=== PATIENT | male | born 1935 | race African-American/Black ===

== ENCOUNTER 2017-12-07 17:45 | Observation (INO) | payer BC ==
[~2017-12-07] VITALS: Ht 182.9 cm; Wt 79.8 kg
[~2017-12-07 17:45] MED LIST: AMLO2.5T2 PO; AMLO2.5T45 PO; ASPI-1159 PO; DEXL60CA3 PO; FINA5TAB11 PO; KETO5DRO37 RIGHTEYE; LEVO5TAB13 PO; PRAV40TA58 PO; TRAM50TA3 PO; TRAM50TA94 PO; TRIA15OI8 TP
[2017-12-07] MEDS ORDERED: ASPIRIN 325MG EC TABLET PO ONE (18:30)
[2017-12-07 18:59] LABS: BASOPHILS % 1.3 % (0.0-2.0); EOSINOPHILS % 1.1 % (0.0-5.0); HEMATOCRIT. 38.4 % (42.0-52.0); HEMOGLOBIN. 12.4 g/dL (14.0-18.0); LYMPHOCYTES % 29.2 % (20.0-50.0); MEAN CORPUSCULAR HEMOGLOBIN 22.8 pg (28.0-32.0); MEAN CORPUSCULAR VOLUME 70.9 fL (80.0-94.0); MEAN PLATELET VOLUME 9.7 fl (7.4-10.4); MONOCYTES % 7.1 % (2.0-8.0); NEUTROPHILS % 61.3 % (40.0-76.0); PLATELET 257 x1000/uL (130-400); RED BLOOD CELL COUNT 5.42 mill/uL (4.7-6.1); RED CELL DISTRIBUTION WIDTH 15.4 % (11.6-14.6)
[2017-12-07 19:07] LABS: CHLORIDE 104 mEq/L (98-107)
[2017-12-07 19:09] LABS: PARTIAL THROMBOPLASTIN TIME 29.1 sec (23.4-31.0); PROTHROMBIN TIME 10.1 sec (9.1-11.1)
[2017-12-07] MEDS ORDERED: HYDROCODONE/ACETAMINOPHEN 5/325MG TABLET PO ONE (20:15)
[2017-12-07] MEDS ORDERED: ASPIRIN 81MG TABLET PO ONE (20:45)
[2017-12-07] MEDS ORDERED: ATORVASTATIN CALCIUM 40MG TABLET PO SCH (21:00)
[2017-12-07 22:00] VITALS: BP 156/79
[2017-12-07] MEDS: SODIUM CHLORIDE 0.9% INJ 3ML FLUSH IVF SCH (22:00)
[2017-12-07 22:19] VITALS: BP 156/79
[2017-12-07] MEDS ORDERED: TAMS0.4C31 PO (22:40)
[2017-12-07] MEDS ORDERED: RANI15SY PO (22:40)
[2017-12-07] MEDS: AMLODIPINE 2.5MG TABLET PO SCH (23:03)
[2017-12-07] MEDS: KETOROLAC TROMETHAMINE 0.5% OPHTH 3ML RIGHTEYE SCH (23:04)
[2017-12-07] MEDS ORDERED: DEXTROSE 50% WATER 50ML SYRINGE IV PRN (23:45)
[2017-12-08] VITALS: BP 125/57
[2017-12-08 04:00] VITALS: BP 126/66
[2017-12-08] MEDS: SODIUM CHLORIDE 0.9% INJ 3ML FLUSH IVF SCH (05:04)
[2017-12-08] MEDS: ACETAMINOPHEN 325MG TABLET PO PRN ×2 (05:04→14:44)
[2017-12-08 06:41] LABS: BASOPHILS % 0.9 % (0.0-2.0); EOSINOPHILS % 1.8 % (0.0-5.0); HEMATOCRIT. 35.4 % (42.0-52.0); HEMOGLOBIN. 11.5 g/dL (14.0-18.0); LYMPHOCYTES % 27.9 % (20.0-50.0); MEAN CORPUSCULAR HEMOGLOBIN 23.2 pg (28.0-32.0); MEAN CORPUSCULAR VOLUME 71.3 fL (80.0-94.0); MEAN PLATELET VOLUME 9.1 fl (7.4-10.4); MONOCYTES % 8.3 % (2.0-8.0); NEUTROPHILS % 61.1 % (40.0-76.0); PLATELET 235 x1000/uL (130-400); RED BLOOD CELL COUNT 4.96 mill/uL (4.7-6.1); RED CELL DISTRIBUTION WIDTH 15.4 % (11.6-14.6)
[2017-12-08] MEDS ORDERED: PANTOPRAZOLE 40MG DR TABLET PO SCH (07:40)
[2017-12-08] MEDS: BLOOD SUGAR DIAGNOSTIC STRIP TEST SCH ×2 (07:40→12:40)
[2017-12-08 08:00] VITALS: BP 119/67
[2017-12-08] MEDS: INSULIN LISPRO 100 UNITS/ML SUBCUT SCH ×2 (08:10→12:59)
[2017-12-08] MEDS: KETOROLAC TROMETHAMINE 0.5% OPHTH 3ML RIGHTEYE SCH (09:00)
[2017-12-08] MEDS ORDERED: FINASTERIDE 5MG TABLET PO SCH (09:00)
[2017-12-08] MEDS ORDERED: ENOXAPARIN 40MG/0.4ML SYR SUBCUT SCH (09:00)
[2017-12-08] MEDS: AMLODIPINE 2.5MG TABLET PO SCH (09:31)
[2017-12-08 12:00] VITALS: BP 110/66
[2017-12-08 16:00] VITALS: BP 129/62
[2017-12-08 17:30] VITALS: BP 144/77
== END 2017-12-08 18:10 | disposition home or self-care (01) ==
LOC: ER 18:52 → INTOOBSV 20:17 → 7WST 20:17 → ENRESERV 20:32
PROVIDERS: ADMIT Ophthalmology; ATTEND Ophthalmology
DX: R07.89 Other chest pain (principal); E78.00 Pure hypercholesterolemia, unspecified; E78.5 Hyperlipidemia, unspecified; K21.9 Gastro-esophageal reflux disease without esophagitis; I12.9 Hypertensive chronic kidney disease with stage 1 through stage 4 chronic kidney disease, or unspecified chronic kidney disease; N18.9 Chronic kidney disease, unspecified; D50.9 Iron deficiency anemia, unspecified
CPT/HCPCS: 36415; 71045; 73610; 80048; 80053; 80061; 82962; 83690; 83880; 84484; 85025; 85610; 85730; 93005; 96372; 99285; G0378; J1650

== ENCOUNTER 2018-07-09 09:51 | Inpatient (IN) | payer BC ==
[~2018-07-09] VITALS: Ht 182.9 cm; Wt 86.6 kg
[~2018-07-09 09:51] MED LIST changes: -AMLO2.5T2 PO; -DEXL60CA3 PO; +TAMS0.4C31 PO; -TRAM50TA3 PO
[2018-07-09] MEDS ORDERED: ASPIRIN 325MG TABLET PO ONE (11:15)
[2018-07-09] MEDS ORDERED: VISCOUS LIDOCAINE 2% 15 ML UDC PO STA (11:34)
[2018-07-09] MEDS ORDERED: FAMOTIDINE 20MG/2ML VIAL IV STA (11:34)
[2018-07-09] MEDS ORDERED: MAGNESIUM/ALUMINUM HYDROXIDE/SIMETHICONE 30ML UDC PO STA (11:34)
[2018-07-09] MEDS ORDERED: ONDANSETRON HCL 4MG/2ML INJ IV STA (11:34)
[2018-07-09 11:56] LABS: BASOPHILS % 1.6 % (0.0-2.0); EOSINOPHILS % 2.2 % (0.0-5.0); HEMATOCRIT. 38.7 % (42.0-52.0); HEMOGLOBIN. 12.1 g/dL (14.0-18.0); LYMPHOCYTES % 25.3 % (20.0-50.0); MEAN CORPUSCULAR HEMOGLOBIN 22.8 pg (28.0-32.0); MEAN CORPUSCULAR VOLUME 72.9 fL (80.0-94.0); MEAN PLATELET VOLUME 9.5 fl (7.4-10.4); NEUTROPHILS % 63.9 % (40.0-76.0); PLATELET 204 x1000/uL (130-400); RED BLOOD CELL COUNT 5.31 mill/uL (4.7-6.1)
[2018-07-09 12:02] LABS: CHLORIDE 107 mEq/L (98-107)
[2018-07-09] MEDS ORDERED: ONDANSETRON HCL 4MG/2ML INJ IV PRN (23:15)
[2018-07-09] MEDS ORDERED: HYDROCODONE/ACETAMINOPHEN 5/325MG TABLET PO PRN (23:15)
[2018-07-09] MEDS ORDERED: IPRATROPIUM/ALBUTEROL 0.5-3(2.5)MG/3ML NEB INH PRN (23:15)
[2018-07-09] MEDS ORDERED: CLONIDINE 0.1MG TABLET PO PRN (23:15)
[2018-07-09] MEDS ORDERED: ACETAMINOPHEN 325MG TABLET PO PRN (23:15)
[2018-07-10 04:00] VITALS: BP 132/72
[2018-07-10 05:17] VITALS: BP 132/72
[2018-07-10 08:00] VITALS: BP 122/64
[2018-07-10] MEDS ORDERED: ENOXAPARIN 30MG/0.3ML SYR SUBCUT SCH (09:00)
[2018-07-10] MEDS: ASPIRIN 81MG EC TABLET PO SCH (09:00)
[2018-07-10 11:10] LABS: BASOPHILS % 0.9 % (0.0-2.0); EOSINOPHILS % 2.1 % (0.0-5.0); HEMATOCRIT. 38.6 % (42.0-52.0); HEMOGLOBIN. 12.1 g/dL (14.0-18.0); LYMPHOCYTES % 20.3 % (20.0-50.0); MEAN CORPUSCULAR VOLUME 73.2 fL (80.0-94.0); MEAN PLATELET VOLUME 9.6 fl (7.4-10.4); NEUTROPHILS % 69.7 % (40.0-76.0); PLATELET 180 x1000/uL (130-400); RED BLOOD CELL COUNT 5.27 mill/uL (4.7-6.1)
[2018-07-10 11:31] LABS: CHLORIDE 104 mEq/L (98-107)
[2018-07-10 11:38] LABS: LDL CHOLESTEROL 83 mg/dL (5-100)
[2018-07-10 11:39] LABS: HDL CHOLESTEROL 50 mg/dL (40-59); T4 FREE 1.03 ng/dL (0.76-1.46)
[2018-07-10 12:00] VITALS: BP 117/63
[2018-07-10] MEDS: AMLODIPINE 5MG TABLET PO SCH ×2 (14:00→21:29)
[2018-07-10] MEDS ORDERED: LACTULOSE 20G/30ML UDC PO NR (14:00)
[2018-07-10] MEDS: DOCUSATE SODIUM 100MG CAPSULE PO SCH (16:15)
[2018-07-10 16:16] VITALS: BP 119/59
[2018-07-10 20:50] VITALS: BP 152/71
[2018-07-11] VITALS: BP 133/70
[2018-07-11 04:00] VITALS: BP 123/63
[2018-07-11 08:00] VITALS: BP 102/57
[2018-07-11 08:05] LABS: EOSINOPHILS % 2.3 % (0.0-5.0); HEMATOCRIT. 38.7 % (42.0-52.0); HEMOGLOBIN. 12.2 g/dL (14.0-18.0); LYMPHOCYTES % 26.6 % (20.0-50.0); MEAN CORPUSCULAR HEMOGLOBIN 22.8 pg (28.0-32.0); MEAN CORPUSCULAR VOLUME 72.4 fL (80.0-94.0); MEAN PLATELET VOLUME 9.3 fl (7.4-10.4); MONOCYTES % 7.7 % (2.0-8.0); NEUTROPHILS % 62.4 % (40.0-76.0); PLATELET 205 x1000/uL (130-400); RED BLOOD CELL COUNT 5.34 mill/uL (4.7-6.1); RED CELL DISTRIBUTION WIDTH 16.2 % (11.6-14.6)
[2018-07-11] MEDS ORDERED: ENOXAPARIN 40MG/0.4ML SYR SUBCUT SCH (09:00)
[2018-07-11] MEDS: AMLODIPINE 5MG TABLET PO SCH (09:00)
[2018-07-11] MEDS: ASPIRIN 81MG EC TABLET PO SCH (09:06)
[2018-07-11] MEDS: DOCUSATE SODIUM 100MG CAPSULE PO SCH (09:06)
[2018-07-11] MEDS ORDERED: LACTULOSE 20G/30ML UDC PO SCH (09:15)
[2018-07-11 12:00] VITALS: BP 132/72
[2018-07-11 14:36] VITALS: BP 132/72
== END 2018-07-11 15:15 | disposition home or self-care (01) | DRG 392 ==
LOC: ER 10:14 → ENRESERV 07-10 02:41 → 7WST 07-10 04:24
PROVIDERS: ADMIT Internal Medicine; ATTEND Internal Medicine
DX: R10.32 Left lower quadrant pain (principal); K57.90 Diverticulosis of intestine, part unspecified, without perforation or abscess without bleeding; D50.9 Iron deficiency anemia, unspecified; E78.00 Pure hypercholesterolemia, unspecified; I12.9 Hypertensive chronic kidney disease with stage 1 through stage 4 chronic kidney disease, or unspecified chronic kidney disease; I25.10 Atherosclerotic heart disease of native coronary artery without angina pectoris; K59.00 Constipation, unspecified; N18.9 Chronic kidney disease, unspecified; N40.0 Benign prostatic hyperplasia without lower urinary tract symptoms; Z79.82 Long term (current) use of aspirin; Z79.899 Other long term (current) drug therapy
CPT/HCPCS: 36415; 71045; 74176; 76700; 80048; 80061; 82550; 83735; 83880; 84153; 84439; 84443; 84484; 93005; 93306; 96374; 96375; 99285; J1650; J2405; J3490; G0103

== ENCOUNTER 2018-12-25 08:31 | Inpatient (IN) | payer BC ==
[~2018-12-25] VITALS: Ht 365.8 cm; Wt 73.6 kg
[~2018-12-25 08:31] MED LIST changes: -ASPI-1159 PO; +ASPI-1393 PO
[2018-12-25] MEDS ORDERED: SODIUM CHLORIDE 0.9% 1,000 ML IV ONE (09:09)
[2018-12-25 09:15] LABS: BASOPHILS % 1.5 % (0.0-2.0); EOSINOPHILS % 1.1 % (0.0-5.0); HEMATOCRIT. 43.1 % (42.0-52.0); HEMOGLOBIN. 13.7 g/dL (14.0-18.0); LYMPHOCYTES % 22.4 % (20.0-50.0); MEAN CORPUSCULAR HEMOGLOBIN 22.5 pg (28.0-32.0); MEAN CORPUSCULAR VOLUME 70.7 fL (80.0-94.0); MEAN PLATELET VOLUME 8.9 fl (7.4-10.4); MONOCYTES % 6.3 % (2.0-8.0); NEUTROPHILS % 68.7 % (40.0-76.0); PLATELET 206 x1000/uL (130-400); RED CELL DISTRIBUTION WIDTH 17.3 % (11.6-14.6)
[2018-12-25 09:23] LABS: CHLORIDE 108 mEq/L (98-107); PROTHROMBIN TIME 10.6 sec (9.6-11.0)
[2018-12-25] MEDS ORDERED: ASPIRIN 325MG TABLET PO ONE (09:45)
[2018-12-25] MEDS ORDERED: MAGNESIUM/ALUMINUM HYDROXIDE/SIMETHICONE 30ML UDC PO PRN (13:15)
[2018-12-25] MEDS ORDERED: DIPHENHYDRAMINE 50MG/ML VIAL IV PRN (13:15)
[2018-12-25] MEDS ORDERED: ONDANSETRON HCL 4MG/2ML INJ IV PRN (13:15)
[2018-12-25] MEDS ORDERED: DOCUSATE SODIUM 100MG CAPSULE PO PRN (13:15)
[2018-12-25] MEDS ORDERED: HYDRALAZINE 20MG/ML VIAL IV PRN (13:15)
[2018-12-25] MEDS ORDERED: ACETAMINOPHEN 325MG TABLET PO PRN (13:15)
[2018-12-25] MEDS ORDERED: NA PHOS,M-B/NA PHOS,DI-BA ENEMA 118ML PR PRN (13:15)
[2018-12-25] MEDS ORDERED: AZITHROMYCIN 500 MG TABLET PO SCH (13:15)
[2018-12-25] MEDS ORDERED: ACETAMINOPHEN 650MG SUPP PR PRN (13:15)
[2018-12-25] MEDS ORDERED: IPRATROPIUM/ALBUTEROL 0.5-3(2.5)MG/3ML NEB NEB PRN (13:15)
[2018-12-25] MEDS ORDERED: LORAZEPAM 0.5MG TABLET PO PRN (13:15)
[2018-12-25 13:51] LABS: BG BASE EXCESS -1.1 mmol/L (-2.0-2.0); BG CARBOXYHEMOGLOBIN 0.8 % (0.5-1.5); BG DEOXYHEMOGLOBIN 4.1 % (0.0-5.0); BG FRACTION INSPIRED OXYGEN 21; BG HCO3 ACT 23.4 mmol/L (22.0-26.0); BG METHEMOGLOBIN 0.2 % (0.0-1.5); BG OXYGEN SATURATION 95.9 % (92.0-98.5); BG OXYHEMOGLOBIN 94.9 % (94.0-97.0); BG PCO2 38.5 mmHg (35.0-45.0); BG PH 7.402 (7.350-7.450); BG PO2 82.8 mmHg (75.0-100.0); BG SAMPLE SITE RIGHT BRACHIAL; BG TOTAL HEMOGLOBIN 14.1 g/dL (12.0-18.0); BG VENT MODE ROOM AIR
[2018-12-25 14:52] VITALS: BP 135/69
[2018-12-25 16:00] VITALS: BP 149/74
[2018-12-25] MEDS: ENOXAPARIN 40MG/0.4ML SYR SUBCUT SCH (16:51)
[2018-12-25] MEDS: GUAIFENESIN 200MG/10ML SUGAR FREE UDC PO PRN ×2 (16:51→21:22)
[2018-12-25] MEDS: SODIUM CHLORIDE 0.45% 1,000 ML IV SCH (16:52)
[2018-12-25] MEDS: GUAIFENESIN 600MG ER TABLET PO SCH ×2 (16:52→21:18)
[2018-12-25] MEDS: HYDROCODONE/ACETAMINOPHEN 5/325MG TABLET PO PRN (16:57)
[2018-12-25 17:54] LABS: CREATINE KINASE 95 IU/L (39-308)
[2018-12-25 17:56] LABS: CREATINE KINASE MB FRACTION < 1.0 ng/mL (0.5-3.6)
[2018-12-25 20:00] VITALS: BP 133/67
[2018-12-25] MEDS: AMOXICILLIN/POTASSIUM CLAVULANATE 500/125MG TAB PO SCH (21:18)
[2018-12-26] VITALS: BP 125/65
[2018-12-26 00:47] LABS: CREATINE KINASE MB FRACTION 1.3 ng/mL (0.5-3.6)
[2018-12-26 04:00] VITALS: BP_SYST 121; BP_SYST 125; BP_SYST 131; BP_DIAS 63; BP_DIAS 74; BP_DIAS 75
[2018-12-26 06:36] LABS: EOSINOPHILS % 1.5 % (0.0-5.0); HEMATOCRIT. 40.2 % (42.0-52.0); HEMOGLOBIN. 12.7 g/dL (14.0-18.0); LYMPHOCYTES % 25.9 % (20.0-50.0); MEAN CORPUSCULAR HEMOGLOBIN 22.5 pg (28.0-32.0); MEAN CORPUSCULAR VOLUME 70.9 fL (80.0-94.0); MEAN PLATELET VOLUME 9.4 fl (7.4-10.4); MONOCYTES % 8.2 % (2.0-8.0); NEUTROPHILS % 63.4 % (40.0-76.0); PLATELET 204 x1000/uL (130-400); RED BLOOD CELL COUNT 5.66 mill/uL (4.7-6.1); RED CELL DISTRIBUTION WIDTH 17.5 % (11.6-14.6)
[2018-12-26 08:00] VITALS: BP_SYST 125; BP_SYST 127; BP_DIAS 70; BP_DIAS 73
[2018-12-26] MEDS: HYDROCODONE/ACETAMINOPHEN 5/325MG TABLET PO PRN ×3 (09:07→22:00)
[2018-12-26] MEDS: GUAIFENESIN 600MG ER TABLET PO SCH ×2 (09:32→21:56)
[2018-12-26] MEDS: AMOXICILLIN/POTASSIUM CLAVULANATE 500/125MG TAB PO SCH ×2 (09:32→21:56)
[2018-12-26] MEDS: AMLODIPINE 5MG TABLET PO SCH ×2 (09:33→09:38)
[2018-12-26] MEDS: ASPIRIN 81MG EC TABLET PO SCH (09:37)
[2018-12-26 09:42] LABS: CHLORIDE 109 mEq/L (98-107)
[2018-12-26 09:51] LABS: LDL CHOLESTEROL 88 mg/dL (5-100); T4 FREE 1.19 ng/dL (0.76-1.46)
[2018-12-26 09:53] LABS: HDL CHOLESTEROL 41 mg/dL (40-59)
[2018-12-26 10:03] LABS: CLARITY URINE CLEAR (CLEAR); COLOR URINE YELLOW (YELLOW); KETONES URINE NEGATIVE (NEGATIVE); LEUKOCYTE ESTERASE URINE NEGATIVE (NEGATIVE); NITRITE URINE NEGATIVE (NEGATIVE); OCCULT BLOOD URINE NEGATIVE (NEGATIVE); PH URINE 6.5 (4.5-8.0); PROTEIN URINE NEGATIVE (NEGATIVE); SPECIFIC GRAVITY URINE 1.011 (1.005-1.030); UROBILINOGEN URINE 0.2 E.U./dL (0.2-1.0)
[2018-12-26 11:04] LABS: *AMPHETAMINES SCREEN URINE NEGATIVE (NEGATIVE); *BARBITURATES SCREEN URINE NEGATIVE (NEGATIVE); *BENZODIAZEPINES SCREEN URINE NEGATIVE (NEGATIVE); *COCAINE SCREEN URINE NEGATIVE (NEGATIVE); METHADONE URINE SCREEN NEGATIVE (NEGATIVE)
[2018-12-26 11:05] LABS: CANNABINOID URINE SCREEN NEGATIVE (NEGATIVE); OPIATES URINE SCREEN PRESUMTIVE POSITIVE (NEGATIVE); PHENCYCLIDINE URINE SCREEN NEGATIVE (NEGATIVE)
[2018-12-26] MEDS ORDERED: REGADENOSON 0.4 MG/5 ML IV SCH (11:30)
[2018-12-26 12:00] VITALS: BP 133/71
[2018-12-26] MEDS ORDERED: REGADENOSON 0.4 MG/5 ML IV ONE (12:50)
[2018-12-26 16:00] VITALS: BP_SYST 127; BP_SYST 128; BP_DIAS 66
[2018-12-26] MEDS: ENOXAPARIN 40MG/0.4ML SYR SUBCUT SCH (18:08)
[2018-12-26 20:00] VITALS: BP 135/70
[2018-12-26] MEDS ORDERED: ATORVASTATIN CALCIUM 10MG TABLET PO SCH (21:00)
[2018-12-26] MEDS: SODIUM CHLORIDE 0.45% 1,000 ML IV SCH (21:56)
[2018-12-27] VITALS: BP 130/65
[2018-12-27 04:00] VITALS: BP_SYST 120; BP_SYST 128; BP_SYST 130; BP_DIAS 60; BP_DIAS 62; BP_DIAS 66
[2018-12-27 06:19] LABS: BASOPHILS % 1.4 % (0.0-2.0); EOSINOPHILS % 1.7 % (0.0-5.0); HEMATOCRIT. 41.9 % (42.0-52.0); HEMOGLOBIN. 13.6 g/dL (14.0-18.0); LYMPHOCYTES % 24.5 % (20.0-50.0); MEAN CORPUSCULAR HEMOGLOBIN 22.9 pg (28.0-32.0); MEAN CORPUSCULAR VOLUME 70.6 fL (80.0-94.0); MEAN PLATELET VOLUME 9.2 fl (7.4-10.4); NEUTROPHILS % 63.4 % (40.0-76.0); PLATELET 212 x1000/uL (130-400); RED BLOOD CELL COUNT 5.94 mill/uL (4.7-6.1)
[2018-12-27 08:00] VITALS: BP 138/76
[2018-12-27] MEDS: AMOXICILLIN/POTASSIUM CLAVULANATE 500/125MG TAB PO SCH (09:19)
[2018-12-27] MEDS: AMLODIPINE 5MG TABLET PO SCH (09:19)
[2018-12-27] MEDS: GUAIFENESIN 600MG ER TABLET PO SCH (09:19)
[2018-12-27] MEDS: ASPIRIN 81MG EC TABLET PO SCH (09:19)
[2018-12-27] MEDS: SODIUM CHLORIDE 0.45% 1,000 ML IV SCH (09:20)
[2018-12-27] MEDS: HYDROCODONE/ACETAMINOPHEN 5/325MG TABLET PO PRN (09:24)
[2018-12-27 11:12] VITALS: BP 138/76
== END 2018-12-27 13:30 | disposition home or self-care (01) | DRG 640 ==
LOC: ER 08:38 → 5WST 11:07 → EDBEDREQ 11:10 → EDBEDREQTM 11:10 → ENRESERV 11:54 → SUPCPDRO 12:39
PROVIDERS: ADMIT Internal Medicine; ATTEND Internal Medicine
DX: E86.0 Dehydration (principal); I50.33 Acute on chronic diastolic (congestive) heart failure; I13.0 Hypertensive heart and chronic kidney disease with heart failure and stage 1 through stage 4 chronic kidney disease, or unspecified chronic kidney disease; J40 Bronchitis, not specified as acute or chronic; I25.10 Atherosclerotic heart disease of native coronary artery without angina pectoris; R00.1 Bradycardia, unspecified; J06.9 Acute upper respiratory infection, unspecified; K21.9 Gastro-esophageal reflux disease without esophagitis; N40.0 Benign prostatic hyperplasia without lower urinary tract symptoms; N18.9 Chronic kidney disease, unspecified; I27.20 Pulmonary hypertension, unspecified; G90.8 Other disorders of autonomic nervous system; E78.5 Hyperlipidemia, unspecified; I34.0 Nonrheumatic mitral (valve) insufficiency; I25.2 Old myocardial infarction; Z79.82 Long term (current) use of aspirin; Z79.899 Other long term (current) drug therapy
CPT/HCPCS: 36415; 36600; 71045; 78452; 80048; 80061; 80305; 81003; 82375; 82378; 82550; 82553; 82805; 83880; 84439; 84443; 84484; 87077; 87186; 93005; 93306; 93880; 97161; 99285; A9500; J1650; J2785; J7030

== ENCOUNTER 2021-08-21 05:54 | Emergency (ER) | payer BC ==
[~2021-08-21] VITALS: Ht 182.9 cm; Wt 86.9 kg
[~2021-08-21 05:54] MED LIST changes: -ASPI-1393 PO; +ASPI-1497 PO
[2021-08-21 06:07] VITALS: BP 142/67
[2021-08-21 06:44] LABS: BASOPHILS % 1.2 % (0.0-2.0); HEMATOCRIT. 41.4 % (42.0-52.0); HEMOGLOBIN. 13.4 g/dL (14.0-18.0); LYMPHOCYTES % 36.9 % (20.0-50.0); MEAN CORPUSCULAR HEMOGLOBIN 23.1 pg (28.0-32.0); MEAN CORPUSCULAR VOLUME 71.3 fL (80.0-94.0); MEAN PLATELET VOLUME 8.5 fl (7.4-10.4); MONOCYTES % 9.3 % (2.0-8.0); NEUTROPHILS % 50.6 % (40.0-76.0); PLATELET 201 x1000/uL (130-400); RED BLOOD CELL COUNT 5.81 mill/uL (4.7-6.1); RED CELL DISTRIBUTION WIDTH 15.9 % (11.6-14.6)
[2021-08-21 06:48] LABS: CHLORIDE 111 mEq/L (98-107)
[2021-08-21] MEDS ORDERED: ACETAMINOPHEN 325MG TABLET PO ONE (08:00)
[2021-08-21 09:00] LABS: CLARITY URINE CLEAR (CLEAR); COLOR URINE YELLOW (YELLOW); KETONES URINE NEGATIVE (NEGATIVE); LEUKOCYTE ESTERASE URINE NEGATIVE (NEGATIVE); NITRITE URINE NEGATIVE (NEGATIVE); OCCULT BLOOD URINE NEGATIVE (NEGATIVE); PH URINE 6.5 (4.5-8.0); PROTEIN URINE NEGATIVE (NEGATIVE); UROBILINOGEN URINE 0.2 E.U./dL (0.2-1.0)
[2021-08-21] MEDS ORDERED: TOPUD PO (09:08)
== END 2021-08-21 09:36 | disposition home or self-care (01) ==
LOC: ER 05:54
DX: R10.12 Left upper quadrant pain (principal); I10 Essential (primary) hypertension; N32.89 Other specified disorders of bladder; K57.90 Diverticulosis of intestine, part unspecified, without perforation or abscess without bleeding; I99.9 Unspecified disorder of circulatory system; I25.10 Atherosclerotic heart disease of native coronary artery without angina pectoris
CPT/HCPCS: 36415; 74176; 80053; 81003; 85025; 99284